=== PATIENT | female | born 1960 | race Asian ===

== ENCOUNTER → 2016-06-01 | Day surgery (SDC) | payer OTHER ==
--- NOTE | 2016-06-02 13:47 | PATH ---
Cytology Non-Gynecological Report Patient Name: SHIVAM NEVAREZ [facility]. Rec. #: [id number] /Age/Gender: 1960 (Age: 55) / F Account: [id number] Location: RADIOLOGY Taken: 06/01/2016 Received: 06/01/2016 Reported: 06/02/2016 Physicians: Carroll Pool M.D. Specimen(s) Received RIGHT THYROID FNA Clinical History Right thyroid nodule, 4.52 x 2.09 x 2.0 cm Final Diagnosis THYROID GLAND, RIGHT LOBE, US GUIDED FINE NEEDLE ASPIRATION BIOPSY: SATISFACTORY FOR EVALUATION. NO MALIGNANT CELLS IDENTIFIED. CONSISTENT WITH NODULAR HYPERPLASIA (BENIGN FOLLICULAR NODULE, BETHESDA CATEGORY II, BENIGN), SEE COMMENT. Comment: The smears and the cell block show clusters of bland appearing follicular epithelial cells arranged in mixed macro- and microfollicles and flat sheets. Few cells show Hurthle cell (oncocytic) change. Abundant colloid is present. Electronically Signed Meng Rosales M.D. Gross Description Received are four air dried smears, four smears in 95% alcohol, and 20 cc of bloody fluid in formalin. Four diff-quik stained slides, four Pap stained slides and one cell block are made.
== END | disposition home or self-care (01) ==
LOC: JRADIR 08:38
PROVIDERS: ATTEND Internal Medicine Endocrinology, Diabetes & Metabolism
PROC: 0G9H3ZX Drainage of Right Thyroid Gland Lobe, Percutaneous Approach, Diagnostic (ICD-10-PCS; principal; 2016-06-01)
PROC: BG44ZZZ Ultrasonography of Thyroid Gland (ICD-10-PCS; 2016-06-01)
DX: E04.1 Nontoxic single thyroid nodule (principal)
CPT/HCPCS: 10022; 76942; 88173; 88305-TC

== ENCOUNTER → 2016-06-08 | Day surgery (SDC) | payer OTHER ==
--- NOTE | 2016-06-09 12:30 | PATH ---
Cytology Non-Gynecological Report Patient Name: SHIVAM NEVAREZ [facility]. Rec. #: [id number] /Age/Gender: 1960 (Age: 55) / F Account: [id number] Location: RADIOLOGY Taken: 06/08/2016 Received: 06/08/2016 Reported: 06/09/2016 Physicians: Carroll June M.D. Specimen(s) Received LEFT THYROID FNA Clinical History Left thyroid nodule, 2.66 x 2.02 x 2.00 cm Final Diagnosis THYROID GLAND, LEFT LOBE, US GUIDED FINE NEEDLE ULCERATION BIOPSY: SATISFACTORY FOR EVALUATION. NO MALIGNANT CELLS IDENTIFIED. CONSISTENT WITH NODULAR HYPERPLASIA (BENIGN FOLLICULAR NODULE, BETHESDA CATEGORY II, BENIGN), SEE COMMENT. Comment: The smears and the cell block show clusters of bland-appearing follicular single cells arranged in mixed macro- and microfollicles and flat sheets. Some cells show Hurthle cell (oncocytic) change. Colloid is present. Electronically Signed Meng Rosales M.D. Gross Description Received are four air dried smears, four smears in 95% alcohol, and 20 cc of bloody fluid in formalin. Four diff-quik stained slides, four Pap stained slides and one cell block are made.
== END | disposition home or self-care (01) ==
LOC: JRADIR 08:19
PROVIDERS: ATTEND Internal Medicine Endocrinology, Diabetes & Metabolism
PROC: 0G9G3ZX Drainage of Left Thyroid Gland Lobe, Percutaneous Approach, Diagnostic (ICD-10-PCS; principal; 2016-06-08)
PROC: BG44ZZZ Ultrasonography of Thyroid Gland (ICD-10-PCS; 2016-06-08)
DX: E04.2 Nontoxic multinodular goiter (principal)
CPT/HCPCS: 76942; 88173; 88305-TC